=== PATIENT | female | born 1985 | race Two or more races ===

== ENCOUNTER 2017-11-11 12:54 | Emergency (ER) | payer MEDICAID | END 2017-11-11 13:24 | disposition left against medical advice (07) | DX: R05 Cough (principal); R50.9 Fever, unspecified; R19.7 Diarrhea, unspecified ==

== ENCOUNTER 2017-11-12 08:36 | Emergency (ER) | payer MEDICAID ==
--- NOTE | 2017-11-12 09:23 | EDPHY ---
H & P Stated Complaint: COUGH HERE YESTERDAY LEFT WITHOUT BEING SEEN Time Seen by Provider: 11/12/17 09:00 HPI/ROS: CHIEF COMPLAINT: "I want an STD test" HISTORY OF PRESENT ILLNESS: 32-year-old female in the ER stating that for the past several months he has been experiencing a variety of symptoms including gastritis symptoms, for intermittent fever, intermittent URI symptoms. States that she has been to multiple emergency departments and the providers there dismissed her symptoms as "being in my head". She is specifically requesting "STD chlamydia testing", however to exclude HIV testing noting that she has had recent negative HIV testing. She denies: Abdominal pain, chest pain, dyspnea, rash REVIEW OF SYSTEMS: 10 systems reviewed and negative with the exception of the elements mentioned in the history of present illness PAST MEDICAL & SURGICAL HISTORY: No pertinent medical or surgical history SOCIAL HISTORY:Non with children PHYSICAL EXAM (Prior to examination, patient consented to physical exam, hands were washed and my usual and customary physical exam procedures followed) 1) GENERAL: Well-developed, well-nourished, alert and oriented. Appears to be in no acute distress. 2) HEAD: Normocephalic, atraumatic 3) HEENT: Pupils equal, round, reactive to light bilaterally. Sclera anicteric. Nasopharynx, oropharynx, clear, no lesions. Moist Mucous membranes. Ears bilaterally with normal tympanic membranes. 4) NECK: Full range of motion, no meningeal signs. 5) LUNGS: Clear auscultation bilaterally, no wheezes, no rhonchi, no retractions. 6) HEART: Regular rate and rhythm, no murmur, no heave, no gallop. 7) ABDOMEN: No guarding, no rebound, no focal tenderness, negative McBurney's, negative Stern's, negative Rovsing's, negative peritoneal sign, unable to elicit any abdominal pain. No hepatosplenomegaly. 8) MUSCULOSKELETAL: Moving all extremities, no focal areas of tenderness, no obvious trauma. No peripheral edema or discoloration. 9) BACK: No CVA tenderness, no midline vertebral tenderness, no fluctuance, no step-off, no obvious trauma, no visual or palpable abnormality. 10) SKIN: No rash, no petechiae. 11) Psychiatric: Patient is oriented X 3, there is no agitation. DIFFERENTIAL DIAGNOSIS: In no particular order including but not limited to pneumonia, bronchitis, viral syndrome - Personal History LMP (Females 10-55): 22-28 Days Ago Current Tetanus Diphtheria and Acellular Pertussis (TDAP): Yes - Medical/Surgical History Hx Asthma: No Hx Chronic Respiratory Disease: No Hx Diabetes: No Hx Cardiac Disease: No Hx Renal Disease: No Hx Cirrhosis: No Hx Alcoholism: No Hx HIV/AIDS: No Hx Splenectomy or Spleen Trauma: No Other PMH: DENIES - Social History Smoking Status: Never smoked Constitutional: Initial Vital Signs Temperature (C) 36.7 C 11/12/17 08:45 Heart Rate 71 11/12/17 08:45 Respiratory Rate 17 11/12/17 08:45 Blood Pressure 141/103 H 11/12/17 08:45 O2 Sat (%) 98 11/12/17 08:45 O2 Delivery Mode Room Air Allergies/Adverse Reactions: diphenhydramine [From Benadryl] Allergy (Verified 11/12/17 08:43) fentanyl Allergy (Verified 11/12/17 08:43) metronidazole [From Flagyl] Allergy (Verified 11/12/17 08:44) Penicillins Allergy (Verified 11/12/17 08:43) Home Medications: Medication Instructions Recorded Prazosin HCl 11/12/17 Propranolol HCl ER 11/12/17 Sertraline HCl 11/12/17 Medical Decision Making ED Course/Re-evaluation: 9:20 a.m.: This patient has a nonfocal exam, currently appears well. We discussed the multiple possible etiologies for her ongoing symptoms. She does not want HIV testing but does want to be tested for Chlamydia. She denies specific urologic complaints. Will obtain basic laboratory studies. mobile manager will consult as well. Patient has not have a primary care provider. Discussed the importance of establishing primary care as she will more than likely necessitate further diagnostic studies beyond the scope of practice in the emergency department. I saw this patient independently based on established practice protocols. Care of patient under supervision of secondary supervising physician Dr Decker . - Data Points Laboratory Results: Laboratory Results 11/12/17 09:25 11/12/17 09:25 11/12/17 11/12/17 11/12/17 09:25 09:25 09:25 WBC RBC Hgb Hct MCV MCH MCHC RDW Plt Count MPV Neut % (Auto) Lymph % (Auto) [place] % (Auto) Eos % (Auto) Baso % (Auto) Nucleat RBC Rel Count Absolute Neuts (auto) Absolute Lymphs (auto) Absolute Monos (auto) Absolute Eos (auto) Absolute Basos (auto) Absolute Nucleated RBC Immature Gran % Immature Gran # Sodium 140 mEq/L mEq/L (135-145) Potassium 4.0 mEq/L mEq/L (3.3-5.0) Chloride 103 mEq/L mEq/L (97-110) Carbon Dioxide 27 mEq/l mEq/l (22-31) Anion Gap 10 mEq/L mEq/L (8-16) BUN 6 mg/dL L mg/dL (7-23) Creatinine 0.6 mg/dL mg/dL (0.6-1.0) Estimated GFR > 60 Glucose 99 mg/dL mg/dL (70-100) Calcium 10.1 mg/dL mg/dL (8.5-10.4) Beta HCG, Qual NEGATIVE C.trachomatis RNA (TMA) Pending N.gonorrhoeae RNA (TMA) Pending 11/12/17 09:25 WBC 4.99 10^3/uL 10^3/uL (3.80-9.50) RBC 4.23 10^6/uL 10^6/uL (4.18-5.33) Hgb 13.9 g/dL g/dL (12.6-16.3) Hct 38.7 % % (38.0-47.0) MCV 91.5 fL fL (81.5-99.8) MCH 32.9 pg pg (27.9-34.1) MCHC 35.9 g/dL g/dL (32.4-36.7) RDW 11.2 % L % (11.5-15.2) Plt Count 231 10^3/uL 10^3/uL (150-400) MPV 10.4 fL fL (8.7-11.7) Neut % (Auto) 53.1 % % (39.3-74.2) Lymph % (Auto) 35.1 % % (15.0-45.0) [place]haw % (Auto) 9.6 % % (4.5-13.0) Eos % (Auto) 1.6 % % (0.6-7.6) Baso % (Auto) 0.4 % % (0.3-1.7) Nucleat RBC Rel Count 0.0 % % (0.0-0.2) Absolute Neuts (auto) 2.65 10^3/uL 10^3/uL (1.70-6.50) Absolute Lymphs (auto) 1.75 10^3/uL 10^3/uL (1.00-3.00) Absolute Monos (auto) 0.48 10^3/uL 10^3/uL (0.30-0.80) Absolute Eos (auto) 0.08 10^3/uL 10^3/uL (0.03-0.40) Absolute Basos (auto) 0.02 10^3/uL 10^3/uL (0.02-0.10) Absolute Nucleated RBC 0.00 10^3/uL 10^3/uL (0-0.01) Immature Gran % 0.2 % % (0.0-1.1) Immature Gran # 0.01 10^3/uL 10^3/uL (0.00-0.10) Sodium Potassium Chloride Carbon Dioxide Anion Gap BUN Creatinine Estimated GFR Glucose Calcium Beta HCG, Qual C.trachomatis RNA (TMA) N.gonorrhoeae RNA (TMA) Departure - Departure Disposition: Home, Routine, Self-Care Clinical Impression: STD (female) Condition: Good Instructions: Sexually Transmitted Diseases (ED), Safe Sex (ED) Additional Instructions: Return to the emergency department if you develop new or worsening symptoms. I recommend you establish a primary care provider. We have scheduled a follow up appointment for you at [facility], also known as [facility]. The appointment in on November [address] Lucila Olivera MD. Please arrive on time for this appointment. [facility] ([facility]) [address], [place] [phone] Referrals: [facility],. [Clinic] - As per Instructions
[2017-11-12 09:33] LABS: PLATELET COUNT 231 10^3/uL (150-400)
[2017-11-12 10:23] VITALS: BP 174/140
--- NOTE | 2017-11-12 11:03 | ASMTCMCOM ---
CM Note CM Note Notes: Met with patient to discuss resources and follow up with PCP. Patient states that she has been going to [facility] in [place] for the past 3 months. She states that her last appointment was yesterday but she arrived "5 minutes late" and was asked to leave. In addition, patient believes that "no one listens to me" at the clinic and she has not been able to see a doctor. "I see a nurse and that is not what I need, I need to see a doctor". I presented the option of scheduling an appointment at [facility] ([facility]), explaining that the clinic is in partnership with [facility], which is designed to provide her care for her medical and emotional health needs. I offered to schedule an appointment for her-with a physician, and patient confirms that she would follow up with such an appointment if it could be scheduled between 10 AM-12 Noon. I contacted Diana at [facility] and scheduled an appointment for patient on Thursday, November 24 at 10:25 AM (check in time) with Dr. Lucila Olivera. I explained to Diana that patient was interested in seeing a physician, and would likely benefit from the additional support [facility] could provide. Diana confirmed that patient has been to [facility] and usually sees MIKEL Mays. In addition, per patient's record, patient did have an appointment schedued yesterday but was a "no show" I have confirmed the appointment that I scheduled with patient and provided her with address and phone number for [facility]. I stressed the importance of arriving on time and to contact the clinic in advance if she needed to reschedule. I reassured her that the appointment was scheduled with a female physician. I informed patient that I would send her ER report and any diagnostic testing from to[facility] afternoon. Discharge instructions updated with appointment details. Date Signed: 11/12/2017 10:58 AM Electronically Signed By:Nini Ritter RN
[2017-11-13 13:40] LABS: GC AMPLIFICATION GENPROBE NEGATIVE (NEGATIVE)
== END 2017-11-12 10:26 | disposition home or self-care (01) ==
DX: Z11.3 Encounter for screening for infections with a predominantly sexual mode of transmission (principal); R05 Cough; R50.9 Fever, unspecified

== ENCOUNTER 2018-05-22 14:42 | Emergency (ER) | payer MEDICAID ==
--- NOTE | 2018-05-22 15:13 | EDPHY ---
H & P Time Seen by Provider: 05/22/18 15:11 HPI/ROS: CHIEF COMPLAINT: Lower abdominal and pelvic pain HISTORY OF PRESENT ILLNESS: Patient says she had unprotected sex and was seen in our emergency department last fall had negative gonorrhea and chlamydia testing. Was in the emergency department at [facility] on April 30, had a ultrasound that showed a cyst, was treated for "cervicitis" with antibiotics including doxycycline, continues to have which she describes as pain in her cervix. Intermittently sharp and dull, every day, worse with sitting down. Occasionally has some pain with urination. No bleeding, occasional white discharge. Denies . Denies intestinal symptoms or vomiting or diarrhea. No hematuria. REVIEW OF SYSTEMS: Eye: no change in vision ENT: no sore throat Cardiac: no chest pain or syncope Pulmonary: no cough or SOB Abdomen: no vomiting, diarrhea, abdominal pain Musculoskeletal: no back pain Skin: no rash Neuro: no headache Constitutional: no fever : HPI A comprehensive 10 point review of systems is otherwise negative aside from elements mentioned in the history of present illness. PAST MEDICAL HISTORY: Hypertension and migraines Social history: Nonsmoker General Appearance: Alert and conversant, cooperative. Eyes: No scleral icterus. ENT, Mouth: Normal mucous membranes. Respiratory: Normal respiratory effort, breath sounds equal, lungs are clear to auscultation. Cardiovascular: Regular rate and rhythm. Gastrointestinal: Abdomen is soft and non tender. Nontender over McBurney's point. No lower abdominal tenderness to palpation. No rebound or guarding. Pelvic exam: Performed with the patient's nurse shows whitish vaginal discharge which is sent for GC and Chlamydia, some cervical motion tenderness, no mass or bleeding. Neurological: Alert, face symmetric, normal motor and sensory in extremities. Ambulatory. Skin: Warm and dry, no rashes. Musculoskeletal: No peripheral edema. Psychiatric: Not agitated. Emergency Department course/MDM: Urinalysis negative, negative at point of care. Empiric treatment for cervicitis or PID discussed with the patient along with OBGYN follow-up. I think that appendicitis or tubo-ovarian abscess or sepsis or UTI or ectopic are unlikely. Smoking Status: Never smoked Constitutional: Initial Vital Signs Temperature (C) 36.6 C 05/22/18 14:49 Heart Rate 72 05/22/18 14:49 Respiratory Rate 16 05/22/18 14:49 Blood Pressure 168/105 H 05/22/18 14:49 O2 Sat (%) 99 05/22/18 14:49 O2 Delivery Mode Room Air Allergies/Adverse Reactions: diphenhydramine [From Benadryl] Allergy (Verified 05/22/18 14:52) fentanyl Allergy (Verified 05/22/18 14:52) ibuprofen Allergy (Verified 05/22/18 14:52) metronidazole [From Flagyl] Allergy (Verified 05/22/18 14:52) Penicillins Allergy (Verified 05/22/18 14:52) Home Medications: Medication Instructions Recorded Propranolol HCl ER 11/12/17 Sertraline HCl 11/12/17 Doxycycline Hyclate [Doxycycline] 100 mg PO BID #20 cap 05/22/18 Medical Decision Making - Data Points Laboratory Results: 05/22/18 05/22/18 05/22/18 15:30 15:10 15:10 Urine Color PALE YELLOW Urine Appearance CLEAR Urine pH 8.0 H (5.0-7.5) Ur Specific [place] 1.003 (1.002-1.030) Urine Protein NEGATIVE (NEGATIVE) Urine Ketones NEGATIVE (NEGATIVE) Urine Blood NEGATIVE (NEGATIVE) Urine Nitrate NEGATIVE (NEGATIVE) Urine Bilirubin NEGATIVE (NEGATIVE) Urine Urobilinogen NEGATIVE EU EU (0.2-1.0) Ur Leukocyte Esterase NEGATIVE (NEGATIVE) Urine Glucose NEGATIVE (NEGATIVE) Urine Test C.trachomatis RNA (TMA) Pending Pending N.gonorrhoeae RNA (TMA) Pending Pending 05/22/18 15:10 Urine Color Urine Appearance Urine pH Ur Specific [place] Urine Protein Urine Ketones Urine Blood Urine Nitrate Urine Bilirubin Urine Urobilinogen Ur Leukocyte Esterase Urine Glucose Urine Test NEGATIVE C.trachomatis RNA (TMA) N.gonorrhoeae RNA (TMA) Point of Care Test Results: Urine Collection Date 05/22/18 Collection Time 16:00 HCG Results Negative Departure - Departure Disposition: Home, Routine, Self-Care Clinical Impression: Cervicitis Condition: Good Instructions: Doxycycline (By mouth), Cervicitis (ED) Additional Instructions: Please follow-up with referral OBGYN, within a week. Referrals: Aye Wilson MD [Primary Care Provider] - As per Instructions Kristal Roberson MD [Medical Doctor] - As per Instructions Umesh Grant MD [Medical Doctor] - As per Instructions Prescriptions: Doxycycline Hyclate [Doxycycline] 100 mg PO BID #20 cap
[2018-05-22 17:18] VITALS: BP 162/123
[2018-05-24 12:17] LABS: GC AMPLIFICATION GENPROBE NEGATIVE (NEGATIVE)
[2018-05-24 12:17] LABS: GC AMPLIFICATION GENPROBE NEGATIVE (NEGATIVE)
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
== END 2018-05-22 17:15 | disposition home or self-care (01) ==
DX: N72 Inflammatory disease of cervix uteri (principal); I10 Essential (primary) hypertension
CPT/HCPCS: 81025-ER; J0696

== ENCOUNTER 2018-06-17 01:10 | Emergency (ER) | payer MEDICAID ==
--- NOTE | 2018-06-17 01:30 | EDPHY ---
H & P Stated Complaint: pelvic inflammatory disease pain and tingling in bilat hands Time Seen by Provider: 06/17/18 01:30 HPI/ROS: HPI CHIEF COMPLAINT: Concerned about pelvic infection HISTORY OF PRESENT ILLNESS: This patient is a 33-year-old female, she presents emergency room stating that she is concerned she may have a vaginal/pelvic infection. She states for the past 7 months she has been suffering from a chronic pelvic infection. She has been seen in the emergency room as well as followed by OBGYN. She was already treated for cervicitis/PID. However she reports to me that she now has a odor coming from her vagina is concerned that she may have another infection. Past Medical History: Significant medical history for hypertension and migraine Past Surgical History: No recent surgical history Social History: Denies daily use of drugs alcohol tobacco Family History: Noncontributory ROS REVIEW OF SYSTEMS: 10 Systems were reviewed and negative with the exception of the elements mentioned in the history of present illness. Exam Constitutional triage nursing summary reviewed, vital signs reviewed, awake/ alert. Eyes normal conjunctivae and sclera, EOMI, PERRLA. HENT normal inspection, atraumatic, moist mucus membranes, no epistaxis, neck supple/ no meningismus, no raccoon eyes. Respiratory clear to auscultation bilaterally, normal breath sounds, no respiratory distress, no wheezing. Cardiovascular rate normal, regular rhythm, no murmur, no edema, distal pulses normal. Gastrointestinal soft, non-tender, no rebound, no guarding, normal bowel sounds, no distension, no pulsatile mass. Genitourinary no CVA tenderness. Musculoskeletal no midline vertebral tenderness, full range of motion, no calf swelling, no tenderness of extremities, no meningismus, good pulses, neurovascularly intact. Skin pink, warm, & dry, no rash, skin atraumatic. Neurologic awake, alert and oriented x 3, AAOx3, moves all 4 extremities equally, motor intact, sensory intact, CN II-XII intact, normal cerebellar, normal vision, normal speech. Psychiatric normal mood/affect. Heme/Lymph/Immune no lymphadenopathy. Differential Diagnosis: Includes but is not limited to in a particular order vaginal infection, yeast infection, BV, gonorrhea/chlamydia, urinary tract infection, , cervicitis, PID Medical Decision Making: Plan for this patient pelvic exam, check UA, urine . Re-evaluation: Pelvic gave exam performed: Marissa DEL REAL at bedside. Swabs are sent. No CMT on exam. No chetan pus. No adnexal fullness or significant tenderness. There is a slight odor. No external lesions. No evidence of PID on exam. Swab sent to the lab. Patient's lab results reviewed. Negative urinalysis, negative test, wet prep is unremarkable. However given the patient has a foul odor to her vagina, whitish discharge will plan on treating with doxycycline for 14 days, and Rocephin 1st dose given here in the emergency room Rocephin IM and doxycycline. I do recommend she follows up with OBGYN for further evaluation. Additionally we discussed return precautions return emergency room if worsening pelvic pain, fever, worsening vaginal discharge, or questions or concerns she is comfortable this plan. I discussed with the patient she would like to be treated for cervicitis/PID. After long discussion she would prefer this, I have ordered her 250 mg IM Rocephin, she has had this in the past and has tolerated this well without any allergic reaction. Additionally ordered doxycycline 1st dose given in emergency room and doxycycline for 14 days twice daily. I do encourage her to follow up with OBGYN. Additionally should return emergency room she develops worsening abdominal pain, fever, pelvic pain, vomiting, not doing well. I think appendicitis and TOA or unlikely given exam. Return precautions discussed. Source: Patient - Personal History LMP (Females 10-55): 1-7 Days Ago Current Tetanus/Diphtheria Vaccine: Yes Current Tetanus Diphtheria and Acellular Pertussis (TDAP): Yes - Medical/Surgical History Hx Asthma: No Hx Chronic Respiratory Disease: No Hx Diabetes: No Hx Cardiac Disease: No Hx Renal Disease: No Hx Cirrhosis: No Hx Alcoholism: No Hx HIV/AIDS: No Hx Splenectomy or Spleen Trauma: No Other PMH: HTN, Migrines, ,pelvic inflammatory disease,fibromyalgia, TBI - Social History Smoking Status: Never smoked Constitutional: Initial Vital Signs Temperature (C) 36.9 C 06/17/18 01:14 Heart Rate 69 06/17/18 01:14 Respiratory Rate 16 06/17/18 01:14 Blood Pressure 160/102 H 06/17/18 01:14 O2 Sat (%) 99 06/17/18 01:14 O2 Delivery Mode Room Air Allergies/Adverse Reactions: diphenhydramine [From Benadryl] Allergy (Verified 06/17/18 01:19) fentanyl Allergy (Verified 06/17/18 01:19) ibuprofen Allergy (Verified 06/17/18 01:19) metronidazole [From Flagyl] Allergy (Verified 06/17/18 01:19) Penicillins Allergy (Verified 06/17/18 01:19) Home Medications: Medication Instructions Recorded Propranolol HCl ER 11/12/17 Sertraline HCl 11/12/17 RX: Doxycycline Hyclate 100 mg PO BID #28 capsule 06/17/18 Medical Decision Making - Data Points Laboratory Results: 06/17/18 06/17/18 06/17/18 05:02 04:35 04:35 Urine Color YELLOW Urine Appearance CLEAR Urine pH 5.0 (5.0-7.5) Ur Specific [place] 1.013 (1.002-1.030) Urine Protein NEGATIVE (NEGATIVE) Urine Ketones NEGATIVE (NEGATIVE) Urine Blood NEGATIVE (NEGATIVE) Urine Nitrate NEGATIVE (NEGATIVE) Urine Bilirubin NEGATIVE (NEGATIVE) Urine Urobilinogen NEGATIVE EU EU (0.2-1.0) Ur Leukocyte Esterase NEGATIVE (NEGATIVE) Urine Glucose NEGATIVE (NEGATIVE) Urine Test NEGATIVE Trichomonas (Wet Prep) NO WBC Stephanie species DNA C.trachomatis RNA (TMA) Gardnerella DNA Probe N.gonorrhoeae RNA (TMA) Trichomonas DNA Probe 06/17/18 06/17/18 02:10 02:10 Urine Color Urine Appearance Urine pH Ur Specific [place] Urine Protein Urine Ketones Urine Blood Urine Nitrate Urine Bilirubin Urine Urobilinogen Ur Leukocyte Esterase Urine Glucose Urine Test Trichomonas (Wet Prep) Stephanie species DNA Pending C.trachomatis RNA (TMA) Pending Gardnerella DNA Probe Pending N.gonorrhoeae RNA (TMA) Pending Trichomonas DNA Probe Pending Medications Given: Discontinued Medications Ceftriaxone Sodium (Rocephin Im Syringe) 250 mg IM EDNOW ONE PRN Reason: Protocol Stop: 06/17/18 06:19 Last Admin: 06/17/18 06:46 Dose: 250 mg Doxycycline Hyclate (Doxycycline Hyclate) 100 mg PO EDNOW ONE PRN Reason: Protocol Stop: 06/17/18 06:19 Last Admin: 06/17/18 06:26 Dose: 100 mg Departure - Departure Disposition: Home, Routine, Self-Care Clinical Impression: Vaginitis Condition: Good Instructions: Doxycycline (By mouth), Vaginitis (ED) Additional Instructions: 1. Follow up with your OBGYN 2. Return to the emergency room if you have worsening symptoms 3. Take doxycycline antibiotic as prescribed on a full stomach not on an empty stomach. Referrals: NONE *PRIMARY CARE P,. [Primary Care Provider] - As per Instructions Nelsy Car MD [Medical Doctor] - As per Instructions Prescriptions: RX: Doxycycline Hyclate 100 mg PO BID #28 capsule
[2018-06-17 06:07] VITALS: BP 137/86
[2018-06-17] MEDS ORDERED: DOXYCYCLINE HYCLATE 100 MG CAP/TAB PO ONE (06:18)
[2018-06-17 12:12] LABS: GC AMPLIFICATION GENPROBE NEGATIVE (NEGATIVE)
== END 2018-06-17 06:54 | disposition home or self-care (01) ==
DX: N76.0 Acute vaginitis (principal)
CPT/HCPCS: J0696